=== PATIENT | female | born 1950 | race Caucasian/White ===

== ENCOUNTER → 2017-01-24 | Outpatient (REF) | payer MEDICARE, OTHER | LOC: M SFHCWAGY 11:59 | PROVIDERS: ATTEND Nurse Practitioner Women's Health | DX: Z12.4 Encounter for screening for malignant neoplasm of cervix (principal); Z78.0 Asymptomatic menopausal state; Z12.12 Encounter for screening for malignant neoplasm of rectum; Z23 Encounter for immunization | CPT/HCPCS: 82270; G0101; G0123 ==

== ENCOUNTER → 2019-02-11 | Outpatient (CLI) | payer MEDICARE, BC, OTHER ==
--- NOTE | 2019-03-11 14:48 | REPMRS ---
Patient History The patient states she had a clinical breast exam in February 2019.Patient is postmenopausal. No known family history of cancer. Digital Woman Screen Mammo: February 11, 2019 - Exam #: [id number] Bilateral CC and MLO view(s) were taken. Technologist: Emilia James, Technologist Prior study comparison: February 2018, bilateral digital mammo screening bilat, performed at [facility]. February 07, 2017, bilateral digital woman screen mammo, performed at [facility]. January 27, 2016, bilateral digital woman screen mammo, performed at [facility]. FINDINGS: The breast tissue is heterogeneously dense. This may lower the sensitivity of mammography. There is a moderate amount of heterogeneously dense fibroglandular tissue which is fairly symmetric. There is no interval development of dominant mass, architectural distortion, or grouped microcalcification typical of malignancy. There has been no change in the appearance of the mammogram from the prior studies. 3-D tomosynthesis shows no additional findings. Assessment: BI-RADS/ACR category 1 mammogram. Negative Mammogram. Recommendation Routine screening mammogram of both breasts in 1 year (for women over age 40). This patient's Lifetime Breast Cancer RIsk is estimated at 4.9 %. This mammogram was interpreted with the aid of an FDA-approved computer-aided dectection system. Electronically Signed By: Camilo Cordero MD 03/11/19 [id number]
== END ==
LOC: M WHC 10:43
PROVIDERS: ATTEND Nurse Practitioner Women's Health
DX: Z12.31 Encounter for screening mammogram for malignant neoplasm of breast (principal); Z12.4 Encounter for screening for malignant neoplasm of cervix
CPT/HCPCS: 77063; 77067; G0101

== ENCOUNTER → 2019-05-21 | Outpatient (REF) | payer MEDICARE, OTHER | LOC: M LAB REF 19:16 | PROVIDERS: ATTEND Dermatology | DX: L82.0 Inflamed seborrheic keratosis (principal) | CPT/HCPCS: 11102; 88305; G0463 ==

== ENCOUNTER → 2020-02-18 | Outpatient (CLI) | payer MEDICARE, BC ==
--- NOTE | 2020-02-18 13:18 | REPMRS ---
Patient History The patient states she has not had a clinical breast exam in over a year. No known family history of cancer. Digital Woman Screen Mammo: February 18, 2020 - Exam #: [id number] Bilateral CC and MLO view(s) were taken. Technologist: Zena Brooks, Technologist Prior study comparison: February 11, 2019, bilateral digital woman screen mammo performed at [facility]. September 22, 2009, bilateral digital mammo screening bilat, performed at [facility]. August 12, 2008, bilateral digital mammo screening bilat, performed at [facility]. FINDINGS: The breast tissue is heterogeneously dense. This may lower the sensitivity of mammography. The Volpara volumetric breast density category is: C. There is a moderate amount of heterogeneously dense fibroglandular tissue which is fairly symmetric. There is no interval development of dominant mass, architectural distortion, or grouped microcalcification typical of malignancy. There has been no change in the appearance of the mammogram from the prior studies. 3-D tomosynthesis shows no additional findings. Assessment: BI-RADS/ACR category 1 mammogram. Negative Mammogram. Recommendation Routine screening mammogram of both breasts in 1 year (for women over age 40). This patient's [facility] Lifetime Breast Cancer RIsk is estimated at 4.6 %. This mammogram was interpreted with the aid of an FDA-approved computer-aided dectection system. Electronically Signed By: Camilo Cordero MD 02/18/20 [id number]
== END ==
LOC: M WHC 11:23
PROVIDERS: ATTEND Nurse Practitioner Women's Health
DX: Z12.31 Encounter for screening mammogram for malignant neoplasm of breast (principal)

== ENCOUNTER → 2020-10-05 | Outpatient (CLI) | payer MEDICARE, BC, OTHER ==
--- NOTE | 2020-10-05 14:49 | REP ---
INDICATION: MASTODYNIA OF LEFT BREAST, AT 2:00 4 CFN X5 MONTH. PATIENT STATES PAIN HAS BEEN DECREASING IN INTENSITY AND LESS OFTEN THROUGHOUT LAST MONTH AND TODAY HAS NO BREAST COMPLAINTS WHATSOEVER. COMPARISON: Multiple TECHNIQUE: Digital mammography of the left breast was carried out in the CC and MLO projections and compared to the prior exams. By history, the patient has no complaints of a palpable abnormality or other focal left breast complaints whatsoever. FINDINGS: The left breast is unchanged in size and shape. Once again, dense heterogenous fibroglandular elements are seen throughout the left breast to such a degree that the sensitivity of the mammogram detecting cancers decreased. There are no masses. There is no internal architectural distortion. There are no suspicious calcifications. There is no skin thickening or nipple retraction. The Volpara volumetric breast density pattern is C IMPRESSION: BIRADS/ACR category 1 negative mammogram. There is no evidence of malignant alteration of the left breast. Since the patient has no breast complaints today no focal workup could be obtained. Due to the patient's breast density score, breast MRI is indicated at this time. This patient's Tyrer-Cuzick lifetime breast cancer risk assessment score is 4.3. This mammogram was interpreted with the aid of an FDA-approved computer-aided detection system. The patient states she had a clinical breast exam in August 2020. The patient letter being requested is M2. RECOMMENDATION: Repeat screening mammography recommended 1 year (for women over 40). <Electronically signed by Kian Funk > 10/05/20 [id number]
== END ==
LOC: M WHC 13:48
PROVIDERS: ATTEND Nurse Practitioner Women's Health
DX: N64.4 Mastodynia (principal)
CPT/HCPCS: 77065; G0279

== ENCOUNTER → 2022-01-10 | Outpatient (CLI) | payer MEDICARE, BC, OTHER | LOC: M WHC 11:35 | PROVIDERS: ATTEND Nurse Practitioner Family | DX: Z12.31 Encounter for screening mammogram for malignant neoplasm of breast (principal) ==

== ENCOUNTER → 2022-01-25 | Outpatient (CLI) | payer MEDICARE, BC, OTHER | LOC: M WHC 13:27 | PROVIDERS: ATTEND Nurse Practitioner Family | DX: Z12.31 Encounter for screening mammogram for malignant neoplasm of breast (principal); R92.8 Other abnormal and inconclusive findings on diagnostic imaging of breast | CPT/HCPCS: 77065; G0279 ==

== ENCOUNTER → 2023-02-22 | Outpatient (REF) | payer MEDICARE, OTHER | LOC: M SFHCWAGY 17:22 | PROVIDERS: ATTEND Nurse Practitioner Family | DX: Z12.4 Encounter for screening for malignant neoplasm of cervix (principal) | CPT/HCPCS: 87624; G0123 ==

== ENCOUNTER → 2023-02-22 | Outpatient (CLI) | payer MEDICARE, BC, OTHER | LOC: M WHC 14:08 | PROVIDERS: ATTEND Nurse Practitioner Family | DX: Z12.31 Encounter for screening mammogram for malignant neoplasm of breast (principal) ==

== ENCOUNTER → 2024-05-07 | Outpatient (CLI) | payer MEDICARE, BC | LOC: M WHC 11:09 | PROVIDERS: ATTEND Nurse Practitioner Family | DX: Z12.31 Encounter for screening mammogram for malignant neoplasm of breast (principal); R92.333 Mammographic heterogeneous density, bilateral breasts ==